=== PATIENT | female | born 1955 | race Caucasian/White ===

== ENCOUNTER 2017-10-27 23:16 | Emergency (ER) | payer BC ==
[2017-10-27 23:23] VITALS: BP 156/66
[2017-10-28] MEDS ORDERED: Azithromycin 100 MG/5 ML SUSP* 100 MG/5 ML BTL PO ONE (01:56)
--- NOTE | 2017-10-28 02:03 | ED ---
Skin Complaint - HPI Summary HPI Summary: Pt presents today after a cat scratch. Pt states her cat scratched her x 1 day ago. Pt states today she noticed increased redness and swelling at the scratch sites. Pt denies any streaking. Pt denies any F/C. - History of Current Complaint Chief Complaint: EDAnimalBite Time Seen by Provider: 10/28/17 01:12 Stated Complaint: CAT SCRATCH YESTERDAY Hx Obtained From: Patient Skin Exposure Onset/Duration: Days Ago - one Onset Severity: Mild Current Severity: Mild Pain Intensity: 3 Skin Location: Arm - left Character: Redness Aggravating Symptom(s): Nothing Alleviating Symptom(s): Nothing Associated Signs & Symptoms: Bruising - Allergy/Home Medications Allergies/Adverse Reactions: Allergies Allergy/AdvReac Type Severity Reaction Status Date / Time No Known Allergies Allergy Verified 10/27/17 23:23 PMH/Surg Hx/FS Hx/Imm Hx - Cancer History Hx Chemotherapy: No Hx Radiation Therapy: No Infectious Disease History: No Infectious Disease History: Denies: Traveled Outside the [place] in Last 30 Days - Social History Alcohol Use: None Substance Use Type: Reports: None Smoking Status (MU): Never Smoked Tobacco Review of Systems Negative: Fever, Chills Negative: Vomiting, Nausea All Other Systems Reviewed And Are Negative: Yes Physical Exam Triage Information Reviewed: Yes Vital Signs On Initial Exam: Initial Vitals Temp Pulse Resp BP Pulse Ox 36.3 C 92 18 156/66 98 10/27/17 23:19 10/27/17 23:19 10/27/17 23:19 10/27/17 23:19 10/27/17 23:19 Skin: Positive: Warm, Skin Color Reflects Adequate Perfusion, Other - ecchymosis to left distal wrist with mild swelling; no lymphangitis Respiratory/Lung Sounds: Positive: Clear to Auscultation Cardiovascular: Positive: Normal, RRR Neurological: Positive: Normal Psychiatric: Positive: Normal Diagnostics - Vital Signs Vital Signs Temp Pulse Resp BP Pulse Ox 10/27/17 23:19 36.3 C 92 18 156/66 98 - Laboratory Lab Statement: Any lab studies that have been ordered have been reviewed, and results considered in the medical decision making process. Course/Dx - Course Assessment/Plan: Pt with cat scratch without evidence of lymphangitis. Will start pt on oral Azithromycin with return instructions gievn for eveidence of lymphangitis. - Differential Diagnoses - Skin Complaint Differential Diagnoses: Abscess, Lymphangitis, Systemic Illness, Tinea, Urticaria - Diagnoses Provider Diagnoses: Cat-scratch disease Discharge - Sign-Out/Discharge Documenting (check all that apply): Discharge - Discharge Plan Condition: Improved Disposition: HOME Prescriptions: Azithromycin 100 MG/5 ML SUSP* [Zithromax SUSP* 100 MG/5 ML] 250 mg PO DAILY #1 btl Patient Education Materials: Cat Scratch Disease (ED) Referrals: Santiago Swanson MD [Primary Care Provider] - 2 Days - Billing Disposition and Condition Condition: IMPROVED Disposition: HOME Images - Images Hands: 1 - 2cm area of ecchymosis; mild swelling; no warmth, nontender; no lymphangitis; FROM wrist. 2 - <1cm area of abrasion; nontender; no wartm, no swelling
== END 2017-10-28 02:23 | disposition home or self-care (01) ==
LOC: ED 23:16
DX: A28.1 Cat-scratch disease (principal)
CPT/HCPCS: 99282; A9270-GY